=== PATIENT | female | born 1990 | race African-American/Black ===

== ENCOUNTER 2019-06-30 14:31 | Emergency (ER) | payer BC ==
[2019-06-30 14:40] VITALS: BP 124/90
--- NOTE | 2019-06-30 14:41 | ER Document Report ---
HPI - HPI Time Seen by Provider: 06/30/19 14:35 Onset: Just prior to arrival Quality of pain: No pain Associated Symptoms: None Exacerbated by: Denies Similar symptoms previously: No Recently seen / treated by doctor: No - ROS ROS Unobtainable: Yes ROS unobtainable due to patient's medical condition ROS below otherwise negative: Yes Systems Reviewed and Negative: Yes All other systems reviewed and negative - EENT EENT: DENIES: Sore Throat, Congestion - NEURO Neurology: DENIES: Headache - CARDIOVASCULAR Cardiovascular: DENIES: Chest pain - RESPIRATORY Respiratory: DENIES: Trouble Breathing - GASTROINTESTINAL Gastrointestinal: DENIES: Abdominal Pain - URINARY Urinary: DENIES: Dysuria - REPRODUCTIVE Reproductive: DENIES: : - MUSCULOSKELETAL Musculoskeletal: REPORTS: Extremity pain - DERM Skin Color: Normal Skin Problems: Blister - To right third digit. Past Medical History - General Information source: Patient - Social History Smoking Status: Never Smoker Cigarette use (# per day): No Chew tobacco use (# tins/day): No Smoking Education Provided: No Family History: Reviewed & Not Pertinent - Immunizations Hx Diphtheria, Pertussis, Tetanus Vaccination: Yes Hx Pneumococcal Vaccination: 07/03/11 Vertical Provider Document - CONSTITUTIONAL Agree With Documented VS: Yes - INFECTION CONTROL COUNTRY TRAVELED TO/FROM: [place] - HEENT HEENT: Atraumatic, Conjuctival Injection, Normocephalic - NECK Neck: Normal Inspection - RESPIRATORY Respiratory: Breath Sounds Normal - GI/ABDOMEN Gastrointestinal: Abdomen Soft - REPRODUCTIVE Female Genitalia: Normal Inspection - BACK Back: Normal Inspection - NEURO Level of Consciousness: Awake, Alert, Appropriate Motor/Sensory: No Motor Deficit, No Sensory Deficit - DERM Integumentary: Warm, Dry Notes: Right third digit tender excoriated at the lateral nail bed. Discharge - Discharge Clinical Impression: Cellulitis Qualifiers: Site of cellulitis: extremity Site of cellulitis of extremity: finger Laterality: left Qualified Code(s): L03.012 - Cellulitis of left finger Disposition: HOME, SELF-CARE Instructions: Cellulitis ([facility]) Additional Instructions: Warm compresses 4-5 times a day [place] as prescribed must follow-up PMD 3 to 4 days. Prescriptions: Sulfamethoxazole/Trimethoprim [Bactrim Ds Tablet] 1 each PO BID #20 tablet Forms: Return to School Referrals: [email or web address] [Primary Care Provider] - Follow up as needed
== END 2019-06-30 14:52 | disposition home or self-care (01) ==
LOC: ER 14:31
DX: L03.012 Cellulitis of left finger (principal)
CPT/HCPCS: 99283

== ENCOUNTER 2019-07-12 14:49 | Emergency (ER) | payer BC ==
[2019-07-12 15:04] VITALS: BP 133/97
== END 2019-07-12 15:15 | disposition left against medical advice (07) ==
LOC: ER 14:49
DX: Z53.21 Procedure and treatment not carried out due to patient leaving prior to being seen by health care provider (principal)